=== PATIENT | male | born 1980 | race Two or more races ===

== ENCOUNTER 2021-12-27 22:10 | Emergency (ER) | payer MEDICAID, OTHER ==
[~2021-12-27] VITALS: Ht 170.2 cm; Wt 80.7 kg
[2021-12-27 22:49] VITALS: BP 130/86
[2021-12-27] MEDS ORDERED: KETOROLAC TROMETH 30 MG/ML 1ML VIAL IM ONE (23:00)
[2021-12-27] MEDS ORDERED: IBUP800T27 PO (23:13)
== END 2021-12-28 00:16 | disposition home or self-care (01) ==
LOC: ER 22:19
DX: S97.81XA Crushing injury of right foot, initial encounter (principal); W23.0XXA Caught, crushed, jammed, or pinched between moving objects, initial encounter; Y93.89 Activity, other specified; Y92.89 Other specified places as the place of occurrence of the external cause; Y99.8 Other external cause status
CPT/HCPCS: 73630; 96372; J1885

== ENCOUNTER 2022-11-17 22:10 | Emergency (ER) | payer MEDICAID ==
[~2022-11-17] VITALS: Ht 170.2 cm; Wt 77.5 kg
[~2022-11-17 22:10] MED LIST: IBUP800T27 PO
[2022-11-17] MEDS ORDERED: HYDROcodone-ACET 10/325MG TAB PO ONE (23:15)
[2022-11-17] MEDS ORDERED: KETOROLAC TROMETH 60MG/2ML VIAL IM ONE (23:15)
[2022-11-17 23:19] VITALS: BP 129/85
[2022-11-18] MEDS ORDERED: DOXY-340 PO (03:51)
[2022-11-18] MEDS ORDERED: HYDR-4902 PO (03:52)
[2022-11-18] MEDS ORDERED: cefTRIAXone SOD 500 MG VL IM ONE (04:00)
== END 2022-11-18 06:11 | disposition home or self-care (01) ==
LOC: ER 22:10
DX: N45.1 Epididymitis (principal); Z90.49 Acquired absence of other specified parts of digestive tract; Z79.1 Long term (current) use of non-steroidal anti-inflammatories (NSAID)
CPT/HCPCS: 76870; 96372; 99284; J0696; J1885

== ENCOUNTER 2023-06-28 23:53 | Emergency (ER) | payer MEDICAID ==
[~2023-06-28] VITALS: Ht 170.2 cm; Wt 84.1 kg
[~2023-06-28 23:53] MED LIST changes: +DOXY1CAP57 PO; +HYDR-4902 PO; +IBUP-1456 PO; -IBUP800T27 PO
[2023-06-29] MEDS ORDERED: DIPH25CA51 PO (01:45)
[2023-06-29] MEDS ORDERED: DexAMETHasone SOD PHOS 10MG/1ML VIAL INJ IM ONE (01:45)
[2023-06-29] MEDS ORDERED: DOXY-286 PO (01:45)
[2023-06-29] MEDS ORDERED: diphenhdrAMINE HCL 25 MG CAP PO ONE (01:45)
[2023-06-29 02:27] VITALS: BP 145/83; PULSE 87; RESP 16; TEMP 97.8; O2SAT 97
== END 2023-06-29 02:30 | disposition home or self-care (01) ==
LOC: ER 23:53
DX: S30.860A Insect bite (nonvenomous) of lower back and pelvis, initial encounter (principal); W57.XXXA Bitten or stung by nonvenomous insect and other nonvenomous arthropods, initial encounter; Y93.89 Activity, other specified; Y92.89 Other specified places as the place of occurrence of the external cause; Y99.8 Other external cause status
CPT/HCPCS: 96372; 99283; J1100

== ENCOUNTER 2024-08-17 18:43 | Emergency (ER) | payer MEDICAID ==
[~2024-08-17] VITALS: Ht 170.2 cm; Wt 75.8 kg
[~2024-08-17 18:43] MED LIST changes: +DIPH25CA51 PO; +DOXY-286 PO
[2024-08-17 22:00] VITALS: BP 134/84; PULSE 85; RESP 18; TEMP 97.8; O2SAT 98
== END 2024-08-17 23:21 | disposition home or self-care (01) ==
LOC: ER 18:43
DX: S81.831A Puncture wound without foreign body, right lower leg, initial encounter (principal); F10.90 Alcohol use, unspecified, uncomplicated; Z98.890 Other specified postprocedural states; Z79.899 Other long term (current) drug therapy; W54.0XXA Bitten by dog, initial encounter; Y93.89 Activity, other specified; Y92.89 Other specified places as the place of occurrence of the external cause; Y99.8 Other external cause status; Y90.0 Blood alcohol level of less than 20 mg/100 ml

== ENCOUNTER 2025-05-30 17:09 | Emergency (ER) | payer MEDICAID ==
[~2025-05-30] VITALS: Ht 170.2 cm; Wt 73.7 kg
--- NOTE | 2025-05-30 17:45 | ED.PDOC ---
History of Present Illness(SKN HPI Comments 45-year-old male with no reported PMHx presents with a chief complaint of right arm swelling and pain s/p insect bite. Patient thinks that he was bitten by a black spider, but is unsure. Patient is now presenting with swelling and erythema to his right arm. Patient is able to move his extremity. no pain, no wounds. no abdominal pain Chief Complaint: Insect Bite Time Seen by MD: 17:35 Primary Care Provider: KEARA History of Present Illness: Medications, Allergies Allergies: Coded Allergies: [place] Flavor (Verified Allergy, Unknown, 05/30/25) Home Meds Active Scripts Diphenhydramine Hcl (BENADRYL CAPSULE) 25 Mg Cp, 1 CAP PO Q8HR, #20 CAP as needed for allergy sx redness and itching Prov:MAR POLANCO Q CONTENT DEVELOPMENT MANAGER 06/29/23 Doxycycline Hyclate (DOXYCYCLINE HYCLATE) 100 Mg Tab, 1 TAB PO BID for 10 Days, #20 TAB Prov:MAR POLANCO Q CONTENT DEVELOPMENT MANAGER 06/29/23 Hydrocodone-Acetaminophen (Hydrocodone Bitartrate/AC 5-325 mg) 1 Tab Tab, 1 TAB PO Q6HP PRN for 3 Days, #12 TAB Prov:LEXI ANDERS MD 11/18/22 Doxycycline Monohydrate (Doxycycline Monohydrate) 100 Mg Cap, 1 CAP PO BID for 14 Days, #28 CAP Prov:LEXI ANDERS MD 11/18/22 Ibuprofen (Ibuprofen) 800 Mg Tab, 1 TAB PO TID, #30 TAB 0 Refills Prov:KALEY SIDDIQUI 12/27/21 Information Source: Patient Mode of Arrival: Ambulatory Severity: Moderate Timing: Hours Duration: Since onset Prehospital treatment: None Location: Arm Mechanism: Insect, Spider Developed: Generalized erythema Occurence: Outdoors Past Medical History PAST MEDICAL HISTORY: Denies Surgical History: Appendectomy Family History Family History: Unknown Social History Smoker: Non-Smoker Alcohol: Heavy Drugs: Marijuana Lives In: Home Constitutional: denies: chills, diaphoresis, fatigue, fever, malaise, sweats, weakness, others EENTM: denies: blurred vision, double vision, ear bleeding, ear discharge, ear drainage, ear pain, ear ringing, eye pain, eye redness, hearing loss, mouth pain, mouth swelling, nasal discharge, nose bleeding, nose congestion, nose pain, photophobia, tearing, throat pain, throat swelling, voice changes, others Respiratory: denies: cough, hemoptysis, orthopnea, SOB at rest, shortness of breath, SOB with excertion, stridor, wheezing, others Cardiovascular: reports: edema; denies: chest pain, dizzy spells, diaphoresis, Dyspnea on exertion, irregular heart beat, left arm pain, lightheadedness, palpitations, PND, syncope, others Gastrointestinal: denies: abdomen distended, abdominal pain, blood streaked bowels, constipated, diarrhea, dysphagia, difficulty swallowing, hematemesis, melena, nausea, poor appetite, poor fluid intake, rectal bleeding, rectal pain, vomiting, others Genitourinary: denies: burning, dysuria, flank pain, frequency, hematuria, incontinence, penile discharge, penile sore, pain, testicle pain, testicle swelling, urgency, others Neurological: denies: dizziness, fainting, headache, left sided numbness, left sided weakness, numbness, paresthesia, pre-existing deficit, right sided numbness, right sided weakness, seizure, speech problems, tingling, tremors, weakness, others Musculoskeletal: denies: back pain, gout, joint pain, joint swelling, muscle pain, muscle stiffness, neck pain, others Integumetry: denies: bruises, change in color, change in hair/nails, dryness, laceration, lesions, lumps, rash, wounds, others Allergic/Immunocompromised: denies: Difficulty Healing, Frequent Infections, Hives, Itching, others Hematologic/Lymphatic: denies: anemia, blood clots, easy bleeding, easy bruising, swollen glands, others Endocrine: denies: excessive hunger, excessive sweating, excessive thirst, excessive urination, flushing, intolerance to cold, intolerance to heat, unexplained weight gain, unexplained weight loss, others Psychiatric: denies: anxiety, bipolar disorder, depression, hopeless, panic disorder, schizophrenia, sleepless, suicidal, others All Other Systems: Reviewed and Negative Physical Exam General Appearance: No Apparent Distress, Normal HEENT: Normal ENT Inspection, Pharynx Normal, TMs Normal Neck: Full Range of Motion, Non-Tender, Normal, Normal Inspection Respiratory: Chest Non-Tender, Lungs Clear, No Accessory Muscle Use, No Respiratory Distress, Normal Breath Sounds Cardiovascular: No Edema, No JVD, No Murmur, No Gallop, Normal Peripheral Pulses, Regular Rate/Rhythm Breast Exam: Deferred Gastrointestinal: No Organomegaly, Non Tender, No Pulsatile Mass, Normal Bowel Sounds, Soft Genitalia: Deferred Pelvic: Deferred Rectal: Deferred Extremities: No calf tenderness, Normal capillary refill, Normal inspection, Normal range of motion, Non-tender, No pedal edema Musculoskeletal : Location: Right Extremity Location: Arm Apperance: Swelling, Tenderness: Mild Neurologic: Alert, amusement park ride mechanic II-XII nml as Tested, No Motor Deficits, Normal Affect, Normal Mood, No Sensory Deficits Cerebellar Function: Normal Reflexes: Normal Skin: Dry, Normal Color, Warm Lymphatic: No Adenopathy Was a procedure done? Was a procedure done?: No X-Ray, Labs, Meds, VS Vital Signs Date Time Temp Pulse Resp B/P (MAP) Pulse Ox O2 Delivery O2 Flow Rate FiO2 05/30/25 17:48 97.8 100 16 135/88 (104) 96 97.8 05/30/25 17:48 100 16 96 Room Air 05/30/25 17:17 97.9 116 16 134/83 (100) 95 97.9 Lab Test 05/30/25 17:54 Range/Units White Blood Count 6.9 4.4-10.8 10^3/uL Red Blood Count 5.55 4.5-5.90 10^6/uL Hemoglobin 17.3 13.5-17.5 g/dL Hematocrit 50.2 41.0-53.0 % Mean Corpuscular Volume 90.6 80.0-100.0 fL Mean Corpuscular Hemoglobin 31.2 28.0-32.0 pg Mean Corpuscular Hemoglobin Concent 34.4 32.0-36.0 g/dL Red Cell Distribution Width 13.8 11.8-14.3 % Platelet Count 313 140-450 10^3/uL Mean Platelet Volume 7.3 6.9-10.8 fL Neutrophils (%) (Auto) 61.8 37.0-80.0 % Lymphocytes (%) (Auto) 26.5 10.0-50.0 % Monocytes (%) (Auto) 8.5 0.0-12.0 % Eosinophils (%) (Auto) 2.9 0.0-7.0 % Basophils (%) (Auto) 0.3 0.0-2.0 % Neutrophils # (Auto) 4.2 1.6-8.6 10 ^3/uL Lymphocytes # (Auto) 1.8 0.4-5.4 10 ^3/uL Monocytes # (Auto) 0.6 0-1.3 10 ^3/uL Eosinophils # (Auto) 0.2 0-0.8 10 ^3/uL Basophils # (Auto) 0 0-0.2 10 ^3/uL Nucleated Red Blood Cells 0.4 % Sodium Level 144 136-145 mmol/L Potassium Level 3.5 3.5-5.1 mmol/L Chloride Level 106 98-107 mmol/L Carbon Dioxide Level 24 20-31 mmol/L Anion Gap 14 5-15 Blood Urea Nitrogen 12 9-23 mg/dL Creatinine 0.97 0.700-1.30 mg/dL Glomerular Filtration Rate Calc 99 >90 mL/min BUN/Creatinine Ratio 12.4 10.0-20.0 Serum Glucose 102 74-106 mg/dL Calcium Level 9.3 8.7-10.4 mg/dL Current Medications Medications (Trade) Dose Ordered Sig/Miki Route Start Time Stop Time Status Last Admin Ceftriaxone Sodium 50 ml @ 100 mls/hr ONCE ONCE IV 05/30/25 17:45 05/30/25 18:14 DC 05/30/25 17:54 Time of 1ST Reevaluation: 18:05 Reevaluation 1ST: Unchanged Time of 2ND Reevaluation: 18:59 Reevaluation 2ND: Improved Patient Education/Counseling: Diagnosis, Treatment, Prognosis, Need For Follow Up Family Education/Counseling: No Family Present Comments pt does not have any wounds to suggest a bite or envenomation. however, he does have cellulitis. his labs and vss are unremarkable. he is stable for an outpatient trial of antibiotic SEPSIS Sepsis Screen Date sepsis recognized/suspect: May 30, 2025 Time Sepsis recognized/suspect: 1716 Recent Procedure: No On Antibiotic Therapy: No Respiratory Rate >20: No Heart Rate >90: Yes (116) Temp<36 C (96.8 F) or >38.3 C: No SBP <90 or MAP <65 mmHG: No New Acute Mental Status Change: No Is the patient on CPAP, BIPAP,: No Physician Orders Saline Lock (05/30/25 17:42) Vital Signs Date Time Temp Pulse Resp B/P (MAP) Pulse Ox O2 Delivery O2 Flow Rate FiO2 05/30/25 17:48 97.8 100 16 135/88 (104) 96 97.8 05/30/25 17:48 100 16 96 Room Air 05/30/25 17:17 97.9 116 16 134/83 (100) 95 97.9 Laboratory Tests Test 05/30/25 17:54 White Blood Count 6.9 10^3/uL (4.4-10.8) Medications Medications Dose Ordered Sig/Miki Route Start Time Stop Time Status Last Admin Dose Admin Ceftriaxone Sodium 50 ml @ 100 mls/hr ONCE ONCE IV 05/30/25 17:45 05/30/25 18:14 DC 05/30/25 17:54 Departure 1 Departure Time of Disposition: 19:00 Impression: Primary Impression: Cellulitis Qualified Codes: L03.113 - Cellulitis of right upper limb Disposition: HOME / SELF CARE / HOMELESS Condition: Good e-Prescriptions Cephalexin Monohydrate (Cephalexin) 500 Mg Tab 1 TAB PO QID, #40 TAB Prov: JUAN FRANCISCO THACKER MD 05/30/25 Discharged With: Self Critical Care Note Critical Care Time?: No Stability Stability form required: No Heart Score Heart Score: Heart Score Response (Comments) Value History N/A 0 EKG N/A 0 Age N/A 0 Risk Factors N/A 0 Troponin N/A 0 Total 0 I personally scribed for JUAN FRANCISCO THACKER MD ([email or web address]) on 05/30/25 at 17:45. Electronically submitted by Abhi Jamison ([email or web address]). JUAN FRANCISCO THACKER MD May 30, 2025 17:45
[2025-05-30 17:48] VITALS: BP 135/88; PULSE 100; RESP 16; TEMP 97.8; O2SAT 96
[2025-05-30] MEDS: cefTRIAXone 1GM/50ML D5W 50 ML IV ONE (17:54)
[2025-05-30 18:04] LABS: Basophils # (auto) 0 10 ^3/uL (0-0.2); Basophils % (auto) 0.3 % (0.0-2.0); Eosinophils # (auto) 0.2 10 ^3/uL (0-0.8); Eosinophils % (auto) 2.9 % (0.0-7.0); Hematocrit 50.2 % (41.0-53.0); Hemoglobin 17.3 g/dL (13.5-17.5); Lymphocytes # (auto) 1.8 10 ^3/uL (0.4-5.4); Lymphocytes % (auto) 26.5 % (10.0-50.0); Mean Corpuscular Hemoglobin 31.2 pg (28.0-32.0); Mean Corpuscular Hgb Conc. 34.4 g/dL (32.0-36.0); Mean Corpuscular Volume 90.6 fL (80.0-100.0); Monocytes # (auto) 0.6 10 ^3/uL (0-1.3); Monocytes % (auto) 8.5 % (0.0-12.0); Neutrophils # (auto) 4.2 10 ^3/uL (1.6-8.6); Neutrophils % (auto) 61.8 % (37.0-80.0); Nucleated Red Blood Cells % 0.4 %; Platelet Count (auto) 313 10^3/uL (140-450); Red Blood Cells 5.55 10^6/uL (4.5-5.90); Red Cell Distribution Width 13.8 % (11.8-14.3); White Blood Cell 6.9 10^3/uL (4.4-10.8)
[2025-05-30 18:09] LABS: Chloride 106 mmol/L (98-107); Potassium 3.5 mmol/L (3.5-5.1); Sodium 144 mmol/L (136-145)
[2025-05-30 18:10] LABS: Anion Gap 14 (5-15); Carbon Dioxide 24 mmol/L (20-31)
[2025-05-30 18:11] LABS: Calcium 9.3 mg/dL (8.7-10.4)
[2025-05-30 18:15] LABS: BUN/Creatinine Ratio 12.4 (10.0-20.0); Blood Urea Nitrogen 12 mg/dL (9-23); Glucose 102 mg/dL (74-106)
[2025-05-30] MEDS ORDERED: CEPH500T PO (19:01)
== END 2025-05-30 19:11 | disposition home or self-care (01) ==
LOC: ER 17:09
DX: L03.113 Cellulitis of right upper limb (principal); Z90.49 Acquired absence of other specified parts of digestive tract; Z79.899 Other long term (current) drug therapy; W57.XXXA Bitten or stung by nonvenomous insect and other nonvenomous arthropods, initial encounter; Y93.89 Activity, other specified; Y92.89 Other specified places as the place of occurrence of the external cause; Y99.8 Other external cause status
CPT/HCPCS: 36415; 80048; 85025; 96365; 99284; J0696